=== PATIENT | female | born 1980 | race Caucasian/White ===

== ENCOUNTER 2019-07-24 16:36 | Emergency (ER) | payer BC, SELFPAY ==
[2019-07-24 16:45] VITALS: BP 127/72; PULSE 86; RESP 16; TEMP 37.8; O2SAT 100
--- NOTE | 2019-07-24 17:11 | ED.GENADULT ---
HPI - General Adult General Chief complaint: Headache Stated complaint: GAMA Time Seen by Provider: 07/24/19 17:12 Source: patient and RN notes reviewed Mode of arrival: ambulatory Limitations: no limitations History of Present Illness HPI narrative: This is a 38 years old female presented office for evaluation of headache for 9-day. Pain described as sharp to throbbing. Associated with nauseous.Denies any other associated symptoms include congestion, stuffy nose, or cough. Her daughter was sick with influenza and cold.She is smoke. She also currently on Xarelto for a DVT.Denies head injury or trauma.Admits to history of headache however her headache is different than her previous headache. Related Data Home Medications Medication Instructions Recorded Confirmed escitalopram oxalate 20 mg PO DAILY 07/24/19 07/24/19 rivaroxaban [Xarelto] 20 mg PO DAILY 07/24/19 07/24/19 Allergies Allergy/AdvReac Type Severity Reaction Status Date / Time temazepam Allergy Mild Verified 01/23/18 00:49 Review of Systems Review of Systems: Narrative: CONSTITUTIONAL: Denies fever at home EYES: Denies visual changes or light sensitivity ENT: Denies rhinorrhea, congestion, sore throat, otalgia. CARDIOVASCULAR: Denies chest pain RESPIRATORY: Denies dyspnea, wheezing, cough GASTROINTESTINAL: Denies abdominal pain, vomiting, diarrhea. +Nausea GENITOURINARY: Denies urinary symptoms or discharge SKIN: Denies rash MUSCULOSKELETAL: Denies acute back pain NEUROLOGIC: Denies lightheaded/dizziness PMFSH Past Medical History Medical History (Updated 07/24/19 @ 17:42 by DEBRA Chang) DVT (deep venous thrombosis) Saddle pulmonary embolus Social History Social History (Updated 07/24/19 @ 17:42 by DEBRA Chang) Smoking status: Current every day smoker Exam Narrative: Exam Narrative: GENERAL: This is a well-nourished, well-developed patient, in no apparent distress. HEAD: normocephalic, atraumatic. EYES: PERRL. EMOI. No nystagmus noted Sclera clear/white. Vision is grossly intact. EARS: External ears normal, auditory canals clear and without drainage, TMs normal without perforation. Hearing grossly intact. NOSE: External nose normal with no obvious nasal discharge, nares without redness, no rhinorrhea. THROAT: Mucous membranes moist, posterior pharynx clear. NECK: Neck supple, non-tender without lymphadenopathy, masses or thyromegaly. CARDIOVASCULAR: Regular rate and rhythm without murmurs, gallops, or rubs. RESPIRATORY: Clear to auscultation with wheezing inspiration but clear with cough. Breath sounds equal bilaterally. No wheezes, rales, or rhonchi. GASTROINTESTINAL: Abdomen soft, non-tender, nondistended. Bowel sounds are active. No hepato-splenomegaly, or palpable masses. No guarding. SKIN: warm, intact with no suspicious lesions or rash, good texture and turgor. NEURO: awake, alert, and oriented to person, place and time. There were no obvious focal neurologic abnormalities. Steady gait EXTREMITIES: Normal range of motion. No edema. BACK: Nontender without deformity or crepitance. No flank tenderness. [place] Coma Scale Eye Opening: Spontaneous 4 [place] Coma Scale Motor: Obeys Commands 6 [place] Coma Scale Verbal: Oriented 5 Course Vital Signs Vital signs: Vital Signs Temperature 100.0 F H 07/24/19 16:45 Pulse Rate 86 07/24/19 16:45 Respiratory Rate 16 07/24/19 16:45 Blood Pressure 127/72 07/24/19 16:45 Pulse Oximetry 100 07/24/19 16:45 Temperature 100.0 F H 07/24/19 16:45 Pulse Rate 86 07/24/19 16:45 Respiratory Rate 16 07/24/19 16:45 Blood Pressure 127/72 07/24/19 16:45 Pulse Oximetry 100 07/24/19 16:45 Transfer Transfered to: Rogelio Transfer rationale: Diagnostic test Accepting physician: Dr. Fleming, report given to Monisha MARK Medical Decision Making MDM Narrative Medical decision making narrative: It is possible she has atypical migraine or tension headache how
== END 2019-07-24 17:49 | disposition short-term general hospital (02) ==
PROVIDERS: Emergency Provider Nurse Practitioner; PCP Family Medicine
DX: R51 Headache (principal); Z86.718 Personal history of other venous thrombosis and embolism; Z86.711 Personal history of pulmonary embolism; F17.200 Nicotine dependence, unspecified, uncomplicated; Z79.01 Long term (current) use of anticoagulants
CPT/HCPCS: 87804; 99213; G0463

== ENCOUNTER 2019-07-24 18:09 | Emergency (ER) | payer BC, SELFPAY ==
--- NOTE | ~2019-07-24 | CT_ITS ---
EXAMINATION: CT BRAIN W/O DATE: 07/24/2019 18:39 INDICATION: Headache. Patient on blood thinners. TECHNIQUE: Computed tomography (CT) of the head was performed without intravenous contrast. The dose- length product was 605.33 mGy-cm. The mA was adjusted according to patient size. Iterative reconstruc tion technique was employed. COMPARISON: No prior studies for comparison. FINDINGS: Normal brain parenchymal volume for age. Normal mensah-white differentiation. No acute intrac ranial hemorrhage, infarction, mass or mass effect. No ventriculomegaly or midline shift. Midline sagittal images demonstrate a normal corpus callosum, c raniovertebral junction and sella turcica. Basilar cisterns are patent. Paranasal sinuses and mastoids are pneumatized. No depressed skull fractures. IMPRESSION: 1. No acute intracranial abnormality. Reviewed, dictated and finalized at location A. [employer]
--- NOTE | 2019-07-24 18:12 | PC.NURSE ---
SPOKE WITH AQUILES RESTREPO ABOUT PT, VERBAL ORDER GIVEN FOR CT BRAIN WITHOUT CON AT THIS TIME.
[2019-07-24 18:25] VITALS: BP 121/67; PULSE 84; RESP 16; TEMP 37.4; O2SAT 98
--- NOTE | 2019-07-24 19:39 | ED.HA ---
HPI - Headache General Chief Complaint: Headache <SERGE Mary Last Filed: 07/24/19 21:05> Stated Complaint: GAMA X 9 DAYS, SENT FROM <SERGE Mary Last Filed: 07/24/19 21:05> Time Seen by Provider: 07/24/19 19:26 <SERGE Mary Last Filed: 07/24/19 21:05> Source: patient <SERGE Mary Last Filed: 07/24/19 21:05> Mode of arrival: ambulatory <SERGE Mary Last Filed: 07/24/19 21:05> Limitations: no limitations <SERGE Mary Last Filed: 07/24/19 21:05> History of Present Illness HPI Narrative: This is a 38 year old female that presents to the ER for headache x 9 days. Reports she has been getting recurrent headaches. Reports some relief with anti-inflammatories. Reports the pain is throbbing. Associated with some nausea. Denies fever, vision changes, vomiting, numbness or weakness. <SERGE Mary Last Filed: 07/24/19 21:05> Related Data Home Medications: Home Medications Medication Instructions Recorded Confirmed escitalopram oxalate 20 mg PO DAILY 07/24/19 07/24/19 rivaroxaban [Xarelto] 20 mg PO DAILY 07/24/19 07/24/19 <SERGE Mary Last Filed: 07/24/19 21:05> Allergies/Adverse Reactions: Allergies Allergy/AdvReac Type Severity Reaction Status Date / Time temazepam Allergy Mild Verified 01/23/18 00:49 <SERGE Mary Last Filed: 07/24/19 21:05> Review of Systems Review of Systems: Narrative: CONSTITUTIONAL: Denies fever EYES: Denies visual changes GASTROINTESTINAL: Denies vomiting NEUROLOGIC: Reports headache. Denies numbness, or weakness. <SERGE Mary Last Filed: 07/24/19 21:05> All systems reviewed & are unremarkable except as noted in HPI and below <SERGE Mary Filed: 07/24/19 21:05> [facility] Past Medical History Medical History: Medical History (Updated 07/25/19 @ 00:00 by Marisa Zaidi) DVT (deep venous thrombosis) Saddle pulmonary embolus <Monisha Ng PA-C - Last Filed: 07/24/19 21:05> Social History Social History: Social History (Updated 07/24/19 @ 19:42 by Monisha Ng PA-C) Smoking status: Current every day smoker Substance use: never Gender identity (if verbalized by the patient): Female <Monisha Ng PA-C - Last Filed: 07/24/19 21:05> Exam Narrative: Exam Narrative: GENERAL: Well-appearing, well-nourished, and in no acute distress. HEAD: Normocephalic, atraumatic. EYES: PERRLA and EOMI. ENT: Nares clear, no rhinorrhea or epistaxis. Mucous membranes moist. Oropharynx without tonsillar hypertrophy exudate or other lesions. Bilateral TMs pearly mensah non-bulging NECK: Supple. No adenopathy or masses. CHEST: Clear to auscultation. No respiratory distress. No wheezes rales or rhonchi HEART: Regular rate and rhythm. No murmur heard. Normal peripheral pulses. EXTREMITIES: Normal range of motion. No edema. Strength equal in bilateral upper and lower extremities SKIN: Warm, dry, no rash. NEURO: No focal deficits. Alert and oriented x3. CN II-XII grossly intact. Finger to nose intact. Normal heel to jauregui PSYCH: Normal mood and affect <Monisha Ng PA-C - Last Filed: 07/24/19 21:05> Course Reevaluation(s) Reevaluation #1: Patient reports relief of headache and is ready to go home <Monisha Ng PA-C - Last Filed: 07/24/19 21:05> Date: 07/24/19 <Monisha Ng PA-C - Last Filed: 07/24/19 21:05> Time: 21:00 <Monisha Ng PA-C - Last Filed: 07/24/19 21:05> Vital Signs Vital signs: Vital Signs Temperature 37.4 C 07/24/19 18:25 Pulse Rate 84 07/24/19 18:25 Respiratory Rate 16 07/24/19 18:25 Blood Pressure 121/67 07/24/19 18:25 Pulse Oximetry 98 07/24/19 18:25 Temperature 37.4 C 07/24/19 18:25 Pulse Rate 74 07/24/19 21:03 Respiratory Rate 16 07/24/19 21:03 Blood Pressure 115/73 07/24/19 21:03 Pulse Oximetry
[2019-07-24] MEDS: METOCLOPRAMIDE HCL INJ 10 MG/2 ML VIAL IV PUSH (19:57)
[2019-07-24] MEDS: SODIUM CHLORIDE 0.9% IV 1,000 ML 999 ML IV CONT (19:57)
[2019-07-24 19:58] VITALS: BP 112/69; PULSE 67; RESP 16; O2SAT 100
[2019-07-24 21:03] VITALS: BP 115/73; PULSE 74; RESP 16; O2SAT 100
== END 2019-07-24 21:05 | disposition home or self-care (01) ==
PROVIDERS: Emergency Provider Emergency Medicine; PCP Family Medicine
DX: R51 Headache (principal); Z86.718 Personal history of other venous thrombosis and embolism; Z86.711 Personal history of pulmonary embolism; F17.200 Nicotine dependence, unspecified, uncomplicated
CPT/HCPCS: 70450; 96365; 96375; 99284; J0131; J1100; J1200; J2765; J7030